=== PATIENT | male | born 1955 | race Caucasian/White ===

== ENCOUNTER 2023-03-17 05:58 | Observation (INO) | payer MEDICARE, OTHER ==
[~2023-03-17 05:58] MED LIST: AMBIEN5 MG PO; AUGMENTIN 875-1 EACH PO; CIPROFLOXACIN500 MG; CRESTOR10 MG PO; FLAGYL250 MG; FLAGYL500 MG; LISINOPRIL10 MG PO; NORCO 5-325 TA1 EACH
[2023-03-17] MEDS ORDERED: CEFAZOLIN SODIUM 2 GM ONE (06:54)
[2023-03-17] MEDS ORDERED: DEXAMETHASONE SOD PHOS 10 MG/1 ML VIAL ONE (06:54)
[2023-03-17] MEDS ORDERED: GABAPENTIN 300 MG CAP ONE (06:54)
[2023-03-17] MEDS ORDERED: CELECOXIB 200 MG CAP ONE (06:54)
[2023-03-17] MEDS ORDERED: LACTATED RINGER'S 1,000 ML ONE (06:55)
[2023-03-17] MEDS ORDERED: ACETAMINOPHEN 1000 MG/100 ML 100 ML IV ONE (07:02)
[2023-03-17] MEDS ORDERED: SODIUM CHLORIDE 0.9% 500ML 500 ML ONE (07:30)
[2023-03-17] MEDS ORDERED: Vancomycin IV 1,000 MG ONE (07:30)
[2023-03-17] MEDS ORDERED: TRANEXAMIC ACID 20 ML ONE (07:30)
[2023-03-17] MEDS ORDERED: ROPIVACAINE 246.25 MG, EPINEPHRINE HCL 1:1000 1ML 0.5 MG, CLONIDINE HCL 0.08 MG, KETORO... INJ ONE ×5 (08:00)
[2023-03-17] MEDS ORDERED: SODIUM CHLORIDE 0.9% 1000ML 1,000 ML IV SCH (09:15)
[2023-03-17] MEDS ORDERED: HYDROCODONE/APAP 5MG-325MG TAB PO PRN (09:15)
[2023-03-17] MEDS ORDERED: DIPHENHYDRAMINE HCL INJ 50 MG/ML VIAL IV PRN (09:15)
[2023-03-17] MEDS ORDERED: DOCUSATE SODIUM 100 MG CAP PO PRN (09:15)
[2023-03-17] MEDS ORDERED: ONDANSETRON HCL INJ 2MG/ML 2ML 2 MG/ML VIAL IV PRN (09:15)
[2023-03-17] MEDS ORDERED: HYDROCODONE/APAP 7.5MG-325MG 1 EA TAB PO PRN (09:15)
[2023-03-17] MEDS: HYDROMORPHONE 1MG/1ML INJ ONE ×5 (09:36→09:56)
[2023-03-17] MEDS ORDERED: METOCLOPRAMIDE HCL 10 MG/2ML VIAL ONE (09:44)
[2023-03-17] MEDS ORDERED: HYDROMORPHONE 1MG/1ML INJ ONE (10:01)
[2023-03-17] MEDS ORDERED: DEXAMETHASONE SOD PHOS INJ 4 MG/ML SDV ONE (13:32)
[2023-03-17] MEDS ORDERED: PROPOFOL IV EMULSION 10 MG/ML 20 ML VIAL ONE (13:32)
[2023-03-17] MEDS ORDERED: ONDANSETRON HCL INJ 2MG/ML 2ML 2 MG/ML VIAL ONE (13:32)
[2023-03-17] MEDS ORDERED: EPHEDRINE SULFATE INJ 50 MG/ML VIAL ONE (13:32)
[2023-03-17] MEDS ORDERED: LIDOCAINE HCL 2% LOCAL INJ 5 ML SDV VIAL INJ ONE (13:32)
[2023-03-17] MEDS ORDERED: KETOROLAC TROMETHAMINE 30 MG/ML VIAL ONE (13:32)
[2023-03-17] MEDS ORDERED: SEVOFLURANE INHAL SOLN 250 ML PEN BTL ONE (13:32)
[2023-03-17] MEDS ORDERED: ROPIVACAINE 0.5% 5 MG/ML 30 ML SDV ONE (13:49)
[2023-03-17] MEDS ORDERED: EPINEPHRINE HCL 1:1000 1ML 1 MG/ML AMP ONE (13:49)
[2023-03-17 14:00] VITALS: BP 120/70; PULSE 80; RESP 16; O2SAT 97
[2023-03-17] MEDS ORDERED: ASPIRIN81 MG PO (14:08)
[2023-03-17] MEDS ORDERED: CELECOXIB 100 MG CAP PO SCH (17:00)
[2023-03-17] MEDS ORDERED: ASPIRIN 325 MG TAB PO SCH (17:00)
[2023-03-18] MEDS ORDERED: ACETAMINOPHEN 1000 MG/100 ML IV PRN (09:15)
== END 2023-03-17 15:05 | disposition home health service (06) ==
LOC: OR 05:58 → PACU V 09:06
PROVIDERS: ADMIT Specialist; ATTEND Specialist
DX: M16.11 Unilateral primary osteoarthritis, right hip (principal); Z96.642 Presence of left artificial hip joint; M06.9 Rheumatoid arthritis, unspecified; I10 Essential (primary) hypertension; E78.5 Hyperlipidemia, unspecified; F41.9 Anxiety disorder, unspecified; Z91.041 Radiographic dye allergy status; Z91.013 Allergy to seafood; Z01.812 Encounter for preprocedural laboratory examination; Z01.818 Encounter for other preprocedural examination; Z79.899 Other long term (current) drug therapy
CPT/HCPCS: 27130; 71046; 72170; 86850; 86900; 97116; 97161; 97530; C1713 ×2; C1776 ×3; G0378; J0131; J0171; J0690; J1100 ×2; J1170; J1885; J2001; J2405; J2704; J2765; J2795; J3370; J7040; J7121